=== PATIENT | female | born 1940 | race Caucasian/White ===

== ENCOUNTER 2016-09-25 09:21 | Emergency (ER) | payer MEDICARE ==
[~2016-09-25] VITALS: Ht 165.1 cm; Wt 61.4 kg
[2016-09-25 09:39] VITALS: Ht 165.1 cm; Wt 61.4 kg
[2016-09-25] MEDS ORDERED: SOD CHLORIDE 0.9% 1,000 ML IV STA (09:44)
[2016-09-25] MEDS ORDERED: ACETAMINOPHEN 325 MG TAB PO ONE (10:00)
[2016-09-25 10:23] LABS: ADD SCAN DIFF NO
[2016-09-25 10:40] LABS: BASOPHILS % 0.3 % (0.0-2.0); EOSINOPHILS # 0.1 10^3/ul (0.0-0.5); EOSINOPHILS % 0.9 % (0.0-7.0); HEMOGLOBIN 15.2 g/dl (12.0-16.0); LYMPHOCYTES # 0.9 10^3/ul (0.8-2.9); MEAN CORPUSCULAR HEMOGLOBIN 30.7 pg (29.0-33.0); MEAN CORPUSCULAR HGB CONC 32.3 g/dl (32.0-37.0); MEAN CORPUSCULAR VOLUME 94.9 fl (82.0-101.0); MEAN PLATELET VOLUME 10.7 fl (7.4-10.4); MONOCYTE # 0.9 10^3/ul (0.3-0.9); MONOCYTES % 7.1 % (0.0-11.0); NEUTROPHIL # 10.4 10^3/ul (1.6-7.5); NEUTROPHILS % 84.3 % (39.0-77.0); PLATELET COUNT 328 10^3/UL (140-415); RED BLOOD COUNT 4.95 10^6/ul (4.20-5.40); RED CELL DISTRIBUTION WIDTH 13.4 % (11.5-14.5); WHITE BLOOD COUNT 12.3 10^3/ul (4.8-10.8)
[2016-09-25 10:59] LABS: INR 1.08; PT RATIO 1.1
[2016-09-25 11:00] LABS: PARTIAL THROMBOPLASTIN TIME 36.9 Sec (25.0-35.0)
[2016-09-25 11:05] LABS: ALBUMIN 3.9 g/dl (3.3-4.9); ALBUMIN/GLOBULIN RATIO 1.18; BILIRUBIN,INDIRECT 0.4 mg/dl (0-1.1); BILIRUBIN,TOTAL 0.4 mg/dl (0.2-1.3); CALCIUM 8.9 mg/dl (8.4-10.2); CREATININE 0.64 mg/dl (0.44-1.00); POTASSIUM 3.6 mmol/L (3.5-5.1); TOTAL PROTEIN 7.2 g/dl (6.1-8.1)
--- NOTE | 2016-09-25 11:07 | RADRPT ---
PROCEDURE: CT Brain without. CLINICAL INDICATION: Altered mental status. TECHNIQUE: A CT of the brain was performed on multidetector high-resolution CT scanner utilizing a xial sections from the skull base through the vertex without contrast. The scan was reviewed in sof t tissue brain and high frequency resolution bone algorithm windows. Images were reviewed on a high -resolution PACS workstation. One or more the following does reduction techniques were utilized: Aut omated exposure control, adjustment of the mA/ or kV according to patient's size, or use of iterativ e reconstruction technique. The exam CTDI = 45.01 mGy and the DLP = 630.2 mGy-cm. COMPARISON: None available. FINDINGS: The ventricles and sulci are moderately prominent indicative of volume loss. There is no intracrania l hemorrhage, mass effect or midline shift. No abnormal intra-axial or extra-axial fluid collection s are seen. The quigley/white matter differentiation is preserved. There are mild scattered foci of hypoattenuation in the white matter, which are nonspecific in etiol ogy but likely reflect chronic small vessel ischemic changes. There is small 3 mm focal hypodensity in the left lentiform nucleus which likely represent mineralization. There are mild intracranial vas cular calcifications consistent with atherosclerosis. The visualized paranasal sinuses are essential ly clear. IMPRESSION: 1. No acute intracranial hemorrhage, transcortical infarction or mass effect. 2. Mild intracranial atherosclerosis and chronic small vessel ischemic changes. 3. Moderate generalized cerebral and mild cerebellar volume loss. RPTAT: UU .Mary Vega MD, Date Time Electronically viewed and signed by .Mary Vega MD, on 09/25/2016 11:07 .N/
[2016-09-25 11:17] LABS: TROPONIN-I 0.017 ng/ml (0.00-0.12)
--- NOTE | 2016-09-25 11:17 | RADRPT ---
PROCEDURE: CT scan of the pelvis without IV contrast. CLINICAL INDICATION: 76-year-old female with hip pain after a fall. TECHNIQUE: Thin section axial, coronal and sagittal images were performed through the abdomen and pelvis without contrast. Radiation Dose: CTDI: 6.8 and DLP: 211.4 One or more of the following dose reduction techniques were used: - Automated exposure control. - Adjustment of the mA and/or kV according to patient size. Use of iterative reconstruction technique. COMPARISON: Chest x-ray 05/18/2016 06:18 a.m. FINDINGS: Soft tissues: The soft tissues are generous. There are dystrophic calcifications in the soft tissues of the right buttocks. Gastrointestinal: There are diverticula in the sigmoid colon. The small bowel loops have a normal c aliber. Urinary bladder : Normal. Lymph nodes: Normal. Reproductive system and pelvis : The uterus is anteflexed and are unremarkable for age. No abnormal adnexal mass or free fluid is identified in the pelvis. Bony elements: There are degenerative changes in the articular facets at L4-5 end L5-S1. The innomi hailey bone and sacrum are intact. There is an old healed fracture deformity to the inferior ramus of the left side of the pubis. The right and left femoral heads are anatomically aligned within the a cetabula. No acute bony fracture is identified involving either femur. Vasculature: There are atherosclerotic vascular calcifications in the mid and lower abdominal aorta, internal and external iliac and common femoral arteries. IMPRESSION: 1. No acute bony fracture is identified. 2. There are old healed fracture deformities of the inferior ramus of the left side of the pubis. 3. 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 4. Atherosclerotic vascular disease. 5. Diverticulosis of the sigmoid colon. RPTAT:AAJJ Physician Cintia Date Time Electronically viewed and signed by Physician Cintia on 09/25/2016 11:17 /
[2016-09-25] MEDS ORDERED: LORAZEPAM 2 MG INJ IV ONE (11:30)
[2016-09-25 11:36] LABS: ADD UMIC YES; URINE BILIRUBIN (Dip) NEGATIVE (NEGATIVE); URINE BLOOD (Dip) TRACE (NEGATIVE); URINE COLOR LT. YELLOW (YELLOW); URINE GLUCOSE (Dip) NEGATIVE (NEGATIVE); URINE KETONES (Dip) TRACE (NEGATIVE); URINE LEUKOCYTE ESTERASE (Dip) NEGATIVE (NEGATIVE); URINE NITRITE (Dip) NEGATIVE (NEGATIVE); URINE TOTAL PROTEIN (Dip) NEGATIVE (NEGATIVE); URINE UROBILINOGEN (Dip) 0.2 E.U./dL (0.1-1.0)
--- NOTE | 2016-09-25 11:44 | ERA ---
ER Documentation Chief Complaint Date/Time DATE: 09/25/16 TIME: 11:40 Chief Complaint right hip pain from a fall 3 days ago HPI 76-year-old female presents via EMS after mechanical fall reported to be 3-4 days ago. The patient is describing right hip pain, difficulty ambulating and the fact that she has been in a wheelchair for 3-4 days because she cannot walk. She does live at home with her . It sounds like a very complicated social history. Her primary care physician called later and reported significant chronic pain issues, manipulation issues, social issues. The patient is describing moderate to severe right hip pain status post mechanical fall. No prodrome of chest pain or shortness of breath. She thinks that she may have hit her head but did not lose consciousness. Remainder of HPI is limited. Patient appears to be on narcotic pain medication. ROS All systems reviewed and are negative except as per history of present illness. Allergies Allergies: Coded Allergies: No Known Allergy (Unverified , 09/25/16) PMhx/Soc History of Surgery: Yes Anesthesia Reaction: No Hx Neurological Disorder: No Hx Respiratory Disorders: No Hx Cardiac Disorders: No Hx Psychiatric Problems: No Hx Miscellaneous Medical Probl: No Hx Alcohol Use: No Hx Substance Use: No Hx Tobacco Use: No Smoking Status: Never smoker FmHx Family History: No diabetes Physical Exam Vitals Vital Signs Date Time Temp Pulse Resp B/P Pulse Ox O2 Delivery O2 Flow Rate FiO2 09/25/16 10:23 Nasal Cannula 4 09/25/16 09:39 98.6 71 18 124/76 94 Physical Exam General: Well developed, well nourished, no acute distress Head: Normocephalic, atraumatic. Eyes: Pupils equally reactive, EOM intact ENT: Very dry mucous membranes Neck: Supple, no lymphadenopathy, No midline tenderness, deformities, step-offs to the cervical spine, full active and passive range of motion without midline pain. Respiratory: Lungs clear bilaterally, no distress Cardiovascular: RRR, no murmurs, rubs, or gallops Abdominal: Soft, non-tender, non-distended, no peritoneal signs : Deferred MSK: No edema, no unilateral swelling, 5/5 strength. Normal internal and external rotation of the right hip without shortening, no bony abnormalities with mild soft tissue tenderness to the right hip, stable pelvis. Neurologic: Alert and oriented, moving all extremities, normal speech, no focal weakness, no cerebellar signs Skin: No rash Psych: Normal mood Result Diagram: 09/25/16 1010 09/25/16 1010 Results 24 hrs Laboratory Tests Test 09/25/16 10:10 09/25/16 11:15 White Blood Count 12.310^3/ul Red Blood Count 4.9510^6/ul Hemoglobin 15.2g/dl Hematocrit 47.0% Mean Corpuscular Volume 94.9fl Mean Corpuscular Hemoglobin 30.7pg Mean Corpuscular Hemoglobin Concent 32.3g/dl Red Cell Distribution Width 13.4% Platelet Count 04236^3/UL Mean Platelet Volume 10.7fl Neutrophils % 84.3% Lymphocytes % 7.0% Monocytes % 7.1% Eosinophils % 0.9% Basophils % 0.3% Nucleated Red Blood Cells % 0.0/100WBC Neutrophils # 10.410^3/ul Lymphocytes # 0.910^3/ul Monocytes # 0.910^3/ul Eosinophils # 0.110^3/ul Basophils # 0.010^3/ul Nucleated Red Blood Cells # 0.010^3/ul Prothrombin Time 14.0Sec Prothrombin Time Ratio 1.1 INR International Normalized Ratio 1.08 Activated Partial Thromboplast Time 36.9Sec Sodium Level 139mmol/L Potassium Level 3.6mmol/L Chloride Level 103mmol/L Carbon Dioxide Level 25mmol/L Anion Gap 15 Blood Urea Nitrogen 9mg/dl Creatinine 0.64mg/dl Glucose Level 101mg/dl Calcium Level 8.9mg/dl Total Bilirubin 0.4mg/dl Direct Bilirubin 0.00mg/dl Indirect Bilirubin 0.4mg/dl Aspartate Amino Transf (AST/SGOT) 31IU/L Alanine Aminotransferase (ALT/SGPT) 21IU/L Alkaline Phosphatase 109IU/L Creatine Kinase 39IU/L Troponin I 0.017ng/ml Total Protein 7.2g/dl Albumin 3.9g/dl Globulin 3.30g/dl Albumin/Globulin Ratio 1.18 Ethyl Alcohol Level < 10.0mg/dl Urine Color LT. YELLOW Urine Clarity CLEAR Urine pH 5.5 Urine Specific Boling <=1.005 Urine Ketones TRACE Urine Nitrite NEGATIVE Urine Bilirubin NEGATIVE Urine Urobilinogen 0.2 E.U./dL Urine Leukocyte Esterase NEGATIVE Urine Microscopic RBC Pending Urine Microscopic WBC Pending Urine Hemoglobin TRACE Urine Glucose NEGATIVE% Urine Total Protein NEGATIVE Current Medications Medications (Trade) Dose Ordered Sig/Juliann Route PRN Reason Start Time Stop Time Status Last Admin Dose Admin Sodium Chloride (NS) 1,000 ml @ 1,000 mls/hr Q1H STAT IV 09/25/16 09:44 09/25/16 10:43 DC 09/25/16 10:15 Acetaminophen (Tylenol Tab) 650 mg ONCE ONCE PO 09/25/16 10:00 09/25/16 10:01 DC 09/25/16 10:21 Lorazepam (Ativan) 0.5 mg ONCE ONCE IV 09/25/16 11:30 09/25/16 11:31 DC 09/25/16 11:30 Procedures/MDM EKG, MONITORS, & DIAGNOSTIC IMAGING: CT pelvis: IMPRESSION: 1. No acute bony fracture is identified. 2. There are old healed fracture deformities of the inferior ramus of the left side of the pubis. 3. Osteoarthritis of the lower lumbar spine with bilateral degenerative facet arthropathy at L4-5 and L5-S1. 4. Atherosclerotic vascular disease. 5. Diverticulosis of the sigmoid colon. CT brain: IMPRESSION: 1. No acute intracranial hemorrhage, transcortical infarction or mass effect. 2. Mild intracranial atherosclerosis and chronic small vessel ischemic changes. 3. Moderate generalized cerebral and mild cerebellar volume loss. RPTAT: UU EKG: I reviewed and interpreted a 12-lead EKG. Rhythm: Normal sinus rhythm Ectopy: None Intervals: No abnormalities ST segments: No elevations or depressions T waves: No contiguous inversions LAB INTERPRETATION: Nonspecific white count of 12, normal CK, negative troponin MEDICAL DECISION MAKING: The patient presents with what appears to be mechanical fall. She appears to have chronic pain and significant social issues as reported by her primary care physician Dr. Borrego (cellular phone [phone]). The patient will need to be evaluated for possible hip fracture. CT imaging of the head and pelvis are appropriate. The patient does not meet high-risk criteria and based on NEXUS cervical spine criteria there is no indication for cervical spine imaging at this time. ER COURSE: The patient's diagnostic imaging is negative. However the patient is having significant pain and difficulty ambulating. Some of this may be secondary to her chronic pain versus malingering versus social issues. However I am very concerned that the patient is having difficulty caring for activities of daily living. For this reason I would recommend hospitalization. I asked her primary care physician Dr. Borrego, if you want the patient transferred to [place] given she had a recent hospitalization under his care. He states that he will accept the patient at [facility]. We will help arrange transfer. I kept the patient and/or family informed of laboratory and diagnostic imaging results throughout the emergency room course. DISPOSITION PLAN: Medical surgical admission for management of right hip contusion, chronic pain and evaluation of ability to care for activities of daily living. Transfer to [facility] CONSULTATION: Accepting care team and consultations: I discussed the current laboratory data, diagnostic imaging and emergency care provided. Admitting team: Dr. Borrego Admitting team indication: Insurance directed Benefits outweigh the risks of transfer via S. Departure Diagnosis: Primary Impression: Contusion of right hip Qualified Code: S70.01XA - Contusion of right hip, initial encounter Additional Impressions: Chronic pain Qualified Code: G89.4 - Chronic pain syndrome Failure to thrive Qualified Code: R62.7 - Failure to thrive in adult Condition: Stable JAE MOREL MD Sep 25, 2016 11:44
[2016-09-25 11:47] LABS: BACTERIA,URINE FEW; URINE RBCS 0-2 /HPF (0)
[2016-09-25] MEDS ORDERED: ENAL20TA PO (14:54)
[2016-09-25] MEDS ORDERED: ATOR10TA65 PO (14:54)
[2016-09-25 15:20] VITALS: BP 126/68; PULSE 71; RESP 20; TEMP 98.5
== END 2016-09-25 15:20 | disposition home or self-care (01) ==
LOC: E/R 09:21
DX: S70.01XA Contusion of right hip, initial encounter (principal); G89.4 Chronic pain syndrome; R62.7 Adult failure to thrive; R40.4 Transient alteration of awareness; W18.39XA Other fall on same level, initial encounter; Y92.9 Unspecified place or not applicable
CPT/HCPCS: 36415; 70450; 72192; 80053; 80306; 81001; 82550; 84484; 85025; 85610; 85730; 93005; 96374; 99285; J2060; J7030